=== PATIENT | female | born 1945 ===

== ENCOUNTER → 2018-09-03 19:05 | Outpatient (ROUT) | payer MEDICARE, OTHER, SELFPAY ==
[2018-09-03 20:13] LABS: Body Fluid Appearance SLIGHTLY CLOUDY; Body Fluid Clotted? NO CLOTS PRESENT; Body Fluid Color RED; Body Fluid Red Blood Cells 64862 /uL; Body Fluid Tot Nucleated Cells 1343 /uL
[2018-09-03 20:14] LABS: Eosinophils Body Fluid 0 %; Mononuclear WBC Body Fluid 84 %; Polynuclear WBC Body Fluid 16 %
== END ==
PROVIDERS: Visit Provider Internal Medicine Rheumatology
DX: M79.671 Pain in right foot (principal)
CPT/HCPCS: 89051